=== PATIENT | male | born 1975 | race Caucasian/White ===

== ENCOUNTER 2021-12-19 09:07 | Outpatient (CLI) | payer BC, SELFPAY ==
--- NOTE | 2021-12-19 09:15 | CRLHL7_ITS ---
For Patients: As a result of the Century Cures Act, medical imaging exams and procedure reports are released immediately into your electronic medical record. You may view this report before your referring provider. If you have questions, please contact your health care provider. INDICATION: Low back pain. TECHNIQUE: Noncontrast sagittal and axial T1, T2, and sagittal STIR sequences are provided. No comparisons. FINDINGS: The overall stature, alignment and intrinsic marrow signal of the lumbar spine is within normal limits. Conus is normal. L4-5: Left intra foraminal/lateral disc bulge with endplate osteophyte and mild bilateral facet arthropathy results in mild left foraminal narrowing with contact but no compression of the exiting left L4 nerve root. No central canal or right foraminal narrowing. L5-S1: Minor endplate osteophyte with mild bilateral facet arthropathy results in mild bilateral foraminal narrowing with no central canal narrowing. Remainder of the lumbar spine is unremarkable, specifically no evidence of suspicious central canal or foraminal narrowing. IMPRESSION: 1. Mild bilateral L5-S1 foraminal narrowing. 2. Mild left L4-5 foraminal narrowing. Dictated by Kyler Ross MD @ 12/19/2021 7:07:06 PM (Electronically Signed)
== END 2021-12-19 09:08 | disposition home or self-care (01) ==
PROVIDERS: Visit Provider Orthopaedic Surgery Orthopaedic Surgery of the Spine
DX: M54.50 Low back pain, unspecified (principal); M51.26 Other intervertebral disc displacement, lumbar region; M51.27 Other intervertebral disc displacement, lumbosacral region
CPT/HCPCS: 72148